=== PATIENT | female | born 1985 | race Caucasian/White ===

== ENCOUNTER 2020-08-01 20:17 | Emergency (ER) | payer OTHER ==
[~2020-08-01] VITALS: Ht 149.9 cm; Wt 72.6 kg
[2020-08-01 20:17] VITALS: BP_SYST 158
[2020-08-01] MEDS ORDERED: EPINEPHrine 1 MG/ML AMP SUBCUT ONE (20:30)
[2020-08-01] MEDS ORDERED: IPRATROPIUM/ALBUTEROL SULFATE 3 ML AMPUL.NEB (DUONEB) INH ONE (20:30)
[2020-08-01] MEDS ORDERED: methylPREDNISolone SOD SUCC/PF 62.5 MG/ML VIAL IVP ONE (20:30)
[2020-08-01] MEDS ORDERED: methylPREDNISolone SOD SUCC/PF 62.5 MG/ML VIAL ONE (20:46)
[2020-08-01] MEDS ORDERED: DIPHENHYDRAMINE INJ 50 MG/ML VIAL IVP ONE (21:00)
[2020-08-01] MEDS ORDERED: FAMOTIDINE PF 20 MG/2 ML VIAL IVP ONE (21:00)
[2020-08-01 21:04] LABS: HEMATOCRIT 37.8 % (36-48); HEMOGLOBIN 12.7 g/dL (12.0-16.0); MEAN CORPUSCULAR HEMOGLOBIN 31 pg (27-31); MEAN CORPUSCULAR HGB CONC 34 % (32-36); MEAN CORPUSCULAR VOLUME 92 fL (79.0-98.0); PLATELET COUNT (AUTO) 256 K/uL (130-430); RED BLOOD CELL COUNT(AUTO) 4.11 MIL/uL (4.2-6.2); RED CELL DISTRIBUTION WIDTH 12.3 % (9.0-15.0); WHITE BLOOD COUNT (AUTO) 14.4 K/uL (4.8-10.8)
[2020-08-01 21:26] LABS: ANION GAP 10 (5-15); CHLORIDE 98 mmol/L (98-107); GLUCOSE 109 mg/dL (70-99); SODIUM SERUM 135 mmol/L (136-145)
[2020-08-01 21:27] LABS: ALANINE AMINOTRANSFERASE 30 U/L (12-78); ALBUMIN 4.2 g/dL (3.4-4.8); ASPARTATE AMINOTRANSFERASE 18 U/L (10-37); CALCIUM 9.2 mg/dL (8.4-11.0); CREATININE 0.79 mg/dL (0.55-1.30); GFR AFRICAN AMERICAN 108 mL/min (>90); TOTAL BILIRUBIN 0.2 mg/dL (0.0-1.0); UREA NITROGEN, BLOOD 11 mg/dL (8-21)
[2020-08-01 21:27] LABS: ATYPICAL LYMPHOCYTES % 3 % (0-0); BAND % (MANUAL) 4 % (0-6); BASOPHILS % (MANUAL) 0 % (0-2); EOSINOPHILS % (MANUAL) 3 % (0-7); LYMPHOCYTES % (MANUAL) 54 % (20-46); MONOCYTES % (MANUAL) 3 % (0-11)
[2020-08-01] MEDS ORDERED: IPRATROPIUM BROM 0.5 MG/2.5 ML VIAL.NEB (ATROVENT) INH ONE (21:45)
[2020-08-01] MEDS ORDERED: LEVALBUTEROL HCL 0.63 MG/3 ML VIAL.NEB INH ONE (21:45)
[2020-08-02 00:35] VITALS: BP_SYST 138
== END 2020-08-02 00:35 | disposition home or self-care (01) ==
LOC: SED 20:17
DX: T78.2XXA Anaphylactic shock, unspecified, initial encounter (principal); Z88.0 Allergy status to penicillin; Z88.1 Allergy status to other antibiotic agents; Z88.2 Allergy status to sulfonamides; Z88.6 Allergy status to analgesic agent; Z88.8 Allergy status to other drugs, medicaments and biological substances; Z91.040 Latex allergy status; X58.XXXA Exposure to other specified factors, initial encounter
CPT/HCPCS: 36415; 71045; 80053; 84484; 85007; 85027; 85379; 93005; 94640; 96372; 96374; 96375; 99285; J0171; J1200; J2930; J3490; J7030; J7614

== ENCOUNTER 2021-05-04 17:30 | Emergency (ER) | payer OTHER ==
[~2021-05-04] VITALS: Ht 149.9 cm; Wt 72.6 kg
[2021-05-04 17:30] VITALS: BP_SYST 155
[2021-05-04] MEDS ORDERED: methylPREDNISolone SOD SUCC/PF 62.5 MG/ML VIAL IVP ONE (18:45)
[2021-05-04] MEDS ORDERED: DIPHENHYDRAMINE INJ 50 MG/ML VIAL IVP ONE (18:45)
[2021-05-04] MEDS ORDERED: PRED20TA PO (22:34)
[2021-05-04 22:44] VITALS: BP_SYST 127
== END 2021-05-04 22:44 | disposition home or self-care (01) ==
LOC: SED 17:30
DX: J45.901 Unspecified asthma with (acute) exacerbation (principal); Z88.1 Allergy status to other antibiotic agents; Z88.8 Allergy status to other drugs, medicaments and biological substances
CPT/HCPCS: 96374; 96375; 99284; J1200; J2930